=== PATIENT | female | born 1935 | race Caucasian/White ===

== ENCOUNTER 2017-02-24 11:58 | Outpatient (CLI) | payer MEDICARE, OTHER ==
[2016-08-22 07:55] VITALS: BP 154/93
--- NOTE | 2017-02-24 17:55 | Diagnostic Imaging Report ---
[facility] [address] [facility].[address] [id number] Report Submission Date: February 24, 2017 3:09:53 PM CDT Patient Study Name: MINDY JACOB Date: February 24, 2017 12:12:43 PM CDT Modality Type: CR Gender: F Description: SPINE : 37 Institution: [facility] Physician: AKBAR HILL - OP 5 views of the cervical spine History: NECK PAIN X3 MONTHS. PAIN RADIATES TO UPPER EXTREMITIES. UNABLE TO OBTAIN SPACES ON ODONTOID DUE TO PATIENT ANATOMY Findings: No comparison studies Normal cervical lordosis is preserved. Intervertebral disc spaces are maintained No evidence of acute fracture or dislocation of the cervical spine. Multilevel degenerative changes are noted worst at C5 to C7 levels with presence of osteophytes and slight loss of vertebral body height. Impression: No evidence of acute fracture or dislocation. No prevertebral swelling. Multilevel degenerative changes, loss of vertebral body height C5-7. Consider MR Electronically signed on February 24, 2017 3:09:53 PM CDT by: Rosanna AMBROSIO
== END 2017-02-24 12:00 ==
LOC: RAD 11:58
PROVIDERS: ATTEND Family Medicine
DX: M54.2 Cervicalgia (principal)
CPT/HCPCS: 72040

== ENCOUNTER 2018-03-10 08:20 | Outpatient (CLI) | payer MEDICARE, OTHER ==
[2016-08-22 07:55] VITALS: BP 154/93
--- NOTE | 2018-03-10 17:40 | Diagnostic Imaging Report ---
AKBAR HILL [facility] [address] [facility].[address] [address] Report Submission Date: Mar 10, 2018 8:59:56 AM CDT Patient Study Name: MINDY JACOB Date: Mar 10, 2018 8:29:15 AM CDT Modality Type: DX Gender: F Description: SPINE : 37 Institution: [facility] Physician: AKBAR HILL Examination: Plain film lumbar spine History: L-SPINE, LBP X1 WEEK AFTER LIFTING A LARGE ROCK (Hx) Findings: 3 views of the lumbar spine demonstrates osteopenia. No anterior compression. Osteophyte formation. L4/L5 disc space narrowing. Facet degenerative changes. Atherosclerosis involving the abdominal aorta. Impression: Degenerative changes. No compression deformity. If patient is experiencing neurologic symptoms, consider obtaining MRI to further evaluate. Electronically signed on Mar 10, 2018 8:59:56 AM CDT by: Raphael AMBROSIO
--- NOTE | 2018-03-10 17:41 | Diagnostic Imaging Report ---
AKBAR HILL [facility] [address] [facility].[address] [address] Report Submission Date: Mar 10, 2018 9:01:14 AM CDT Patient Study Name: MINDY JACOB Date: Mar 10, 2018 8:30:59 AM CDT Modality Type: DX Gender: F Description: SPINE : 37 Institution: [facility] Physician: AKBAR HILL Examination: Plain film thoracic spine History: T-SPINE, MID BACK PAIN X1 WEEK AFTER LIFTING A LARGE ROCK (Hx) Findings: 3 views of the thoracic spine demonstrates osteopenia. Degenerative wedging. Osteophyte formation. Mild kyphosis. No prevertebral regularity. Impression: Osteopenia and degenerative changes. Presumed age related degenerative wedging. If patient is experiencing neurologic symptoms, consider obtaining MRI to further evaluate. Electronically signed on Mar 10, 2018 9:01:14 AM CDT by: Raphael AMBROSIO
== END 2018-03-10 08:22 ==
LOC: RAD 08:20
PROVIDERS: ATTEND Family Medicine
DX: M54.6 Pain in thoracic spine (principal); M54.5 Low back pain
CPT/HCPCS: 72072; 72100

== ENCOUNTER 2019-06-16 15:41 | Outpatient (CLI) | payer OTHER ==
[2019-01-15 07:24] VITALS: BP 171/108
--- NOTE | 2019-06-16 18:52 | Diagnostic Imaging Report ---
AKBAR H[place] [facility] [address] [address] Report Submission Date: Jun 16, 2019 4:43:57 PM CDT Patient Study Name: MINDY JACOB Date: Jun 16, 2019 3:48:00 PM CDT Modality Type: US Gender: F Description: [facility] : 37 Institution: [facility] Physician: AKBAR HILL Examination: Ultrasound left vein History: LEFT FOOT REDNESS/SWELLING Findings: Sonographic evaluation of the left lower extremity venous system from the groin to the popliteal fossa inclusive. Normal compressibility. No luminal filling defect. Normal waveforms and response to augmentation. No popliteal region fluid collection. Impression: No evidence for deep venous thrombosis. Electronically signed on Jun 16, 2019 4:43:57 PM CDT by: Raphael AMBROSIO
== END 2019-06-16 15:43 ==
LOC: RAD 15:41
PROVIDERS: ATTEND Family Medicine
DX: M79.89 Other specified soft tissue disorders (principal)
CPT/HCPCS: 93971